=== PATIENT | female | born 1965 | race Caucasian/White ===

== ENCOUNTER 2019-11-22 11:33 | Emergency (ER) | payer OTHER ==
[~2019-11-22] VITALS: Ht 167.6 cm; Wt 150.4 kg
[2019-11-22] MEDS ORDERED: ondansetron/PF 4mg/2ml inj IV ONE (12:25)
[2019-11-22] MEDS ORDERED: etomidate 2mg/ml inj. IV ONE (12:25)
[2019-11-22] MEDS ORDERED: fentaNYL/PF 50MCG/1 ML 2ML syringe IV ONE (12:25)
--- NOTE | 2019-11-22 13:49 | NUR ---
PT HAD CLOSED REDUCTION OF RT SHOULDER, PROCEDURE WAS SUCCESFUL. PT TOLERATED PROCEDURE WELL. PT IS ALERT AND ORIENTED FOLLOWING COMMANDS. VITALS ARE AT BASELINE. PT HAS SIGNIFICANT OTHER PRESENT TO DRIVE PT HOME.
[2019-11-22 14:51] VITALS: BP 130/64
== END 2019-11-22 14:36 | disposition home or self-care (01) ==
LOC: ER 11:34
DX: S42.291A Other displaced fracture of upper end of right humerus, initial encounter for closed fracture (principal); S43.084A Other dislocation of right shoulder joint, initial encounter; W01.0XXA Fall on same level from slipping, tripping and stumbling without subsequent striking against object, initial encounter; Y93.89 Activity, other specified; Y92.89 Other specified places as the place of occurrence of the external cause; Y99.9 Unspecified external cause status
CPT/HCPCS: 23675; 73020; 99152; 99153; 99285; J2405; J3010; 94760

== ENCOUNTER 2019-12-17 09:10 | Inpatient (IN) | payer OTHER ==
[2019-12-16 15:57] LABS: HEMOGLOBIN A1C 6.5 % (4.5-6.2)
[2019-12-16 16:01] LABS: ALBUMIN 3.3 G/DL (3.4-5.0); ALKALINE PHOSPHATASE 54 IU/L (46-116); BLOOD UREA NITROGEN 7 MG/DL (7-18); BUN/CREATININE RATIO 10.4 (6.6-38.0); CALCIUM 8.7 MG/DL (8.5-10.1); CHLORIDE 105 MMOL/L (99-107); CREATININE 0.67 MG/DL (0.40-0.90); PRE OP ALT 19 U/L (30-65); PRE OP ANION GAP 10 (8-16); PRE OP AST 21 U/L (10-37); PRE OP BILIRUB, TOTAL 0.3 MG/DL (0.0-1.0); PRE OP GLUCOSE 98 MG/DL (70-104); PRE OP SODIUM 146 MMOL/L (135-145); TOTAL CARBON DIOXIDE 31.3 MMOL/L (24-32); TOTAL PROTEIN 6.5 G/DL (6.4-8.2); eGFR > 90 ML/MIN
[2019-12-16 16:02] LABS: PRE OP POTASSIUM 2.8 MMOL/L (3.4-5.1)
[2019-12-16 16:17] LABS: BASOPHILS # (AUTO) 0.1 X10'3 (0-0.2); BASOPHILS % (AUTO) 0.8 % (0-1); EOSINOPHILS # (AUTO) 0.1 X10'3 (0-0.9); EOSINOPHILS % (AUTO) 1.2 % (0-6); LYMPHOCYTES # (AUTO) 2.8 X10'3 (1.1-4.8); LYMPHOCYTES % (AUTO) 36.2 % (21-51); MEAN CORPUSCULAR HEMOGLOBIN 29.7 PG (27.0-31.0); MEAN CORPUSCULAR HGB CONC 33.9 g/dL (33.0-36.5); MEAN CORPUSCULAR VOLUME 87.5 FL (78-98); MEAN PLATELET VOLUME 7.2 FL (7.4-10.4); MONOCYTES # (AUTO) 0.5 X10'3 (0-0.9); NEUTROPHILS # (AUTO) 4.3 X10'3 (1.8-7.7); NEUTROPHILS % (AUTO) 54.8 % (42-75); PRE OP HEMATOCRIT 33.5 % (35.0-45.0); PRE OP HEMOGLOBIN 11.4 g/dL (12.0-16.0); PRE OP PLATELET COUNT 305 X10'3 (140-440); RED BLOOD COUNT 3.83 X10'6 (4.20-5.60); RED CELL DISTRIBUTION WIDTH 15.7 % (11.5-14.5)
[~2019-12-17] VITALS: Ht 165.1 cm; Wt 153.0 kg
[2019-12-17] VITALS (18 sets, daily range): BP systolic 114–149; BP diastolic 36–87
[~2019-12-17 09:10] MED LIST: ASPI-1265 PO; ATOR40TA PO; CARV-50 PO; DOCUMENT DATE & TIME OF BETA-BLOCKER PO ONE; GABA-530 PO; HYDR-4353 PO; HYDR50TA3 PO; LISI40TA4 PO; METF-436 PO; NAPR-56 PO; OMEP20TA5 PO; albuterol 2.5 MG/3 ML nebule NEB ONE; ceFAZolin 1,000 MG/D5W 50ML IVPB Premixed bag IV ONE; cefazolin/dext.iso 2gm/50ml 50 ML IV ONE; famotidine 20mg tablet PO ONE; ringers solution, lacted 1,000 ML IV SCH; tranexamic acid inj. 1,400 MG in normal saline 100ml IV soln 100 ML IV ONE; vancomycin inj 1,500 MG in normal saline 300ml IV soln IV ONE
--- NOTE | 2019-12-17 11:00 | NUR ---
DR NUNES NOTIFIED OF K 3.1 Addendum: 12/17/19 at 1129 by Casandra Ace RN Amended: Links added.
[2019-12-17] MEDS ORDERED: ROPIVAcaine 0.5% (5mg/ml) 30ml vial ONE ×2 (13:01→15:14)
[2019-12-17] MEDS ORDERED: ketorolac trometh. 30mg/ml inj. ONE (13:01)
[2019-12-17] MEDS ORDERED: sevoflurane 250ml liquid IH ONE (13:10)
[2019-12-17] MEDS ORDERED: fentaNYL/PF 50MCG/1 ML 2ML syringe ONE ×2 (13:13→14:06)
[2019-12-17] MEDS ORDERED: MIDAZolam 5mg/5ml vial ONE (13:13)
[2019-12-17] MEDS ORDERED: acetaminophen 325mg tablet PO PRN (14:10)
[2019-12-17] MEDS ORDERED: bisacodyl 10mg suppository rectal RC PRN (14:10)
[2019-12-17] MEDS ORDERED: magnesium hydroxide 30ml (MOM) UD suspension PO PRN (14:10)
[2019-12-17] MEDS ORDERED: diphenhydrAMINE 25mg capsule PO PRN ×2 (14:10)
[2019-12-17] MEDS ORDERED: HYDROmorphone 1 mg/ml syringe IV PRN (14:10)
[2019-12-17] MEDS ORDERED: HYDROmorphone inj. 0.5 MG/0.5 ML DISP.SYRIN IV PRN (14:10)
[2019-12-17] MEDS ORDERED: ondansetron/PF 4mg/2ml inj IV PRN ×2 (14:10→14:50)
[2019-12-17] MEDS ORDERED: ringers solution, lacted 1,000 ML IV SCH (14:48)
[2019-12-17] MEDS ORDERED: ROPIVAcaine 0.2%/PF PUMP/bolus 550 ML INTERSCALE SCH (14:48)
[2019-12-17] MEDS ORDERED: morphine 2 MG/ML inj. syringe IV PRN (14:50)
[2019-12-17] MEDS ORDERED: morphine 4 MG/ML inj SYRINge IV PRN (14:50)
[2019-12-17] MEDS ORDERED: meperidine/PF 25mg/ml syringe IV PRN ×3 (14:50)
[2019-12-17] MEDS ORDERED: ROPIVAcaine 0.2% (10 MG/5 ML) BOLUS INJECTION INTERSCALE PRN (14:50)
[2019-12-17] MEDS ORDERED: proCHLORperazine 10 MG/2 ml inj IV PRN (14:50)
[2019-12-17] MEDS ORDERED: rocuronium 10mg/ml inj IV ONE (15:14)
[2019-12-17] MEDS ORDERED: propofol inj 20 ML IV ONE (15:14)
[2019-12-17] MEDS ORDERED: glycopyrrolate 0.2mg/ml inj ONE (15:14)
[2019-12-17] MEDS ORDERED: LIDOcaine 2% (20mg/ml) 5ml vial ONE (15:14)
[2019-12-17] MEDS ORDERED: neostigmine methylsulfate 1 MG/ML 10ml vial ONE (15:14)
[2019-12-17] MEDS ORDERED: ondansetron/PF 4mg/2ml inj ONE (15:14)
--- NOTE | 2019-12-17 15:52 | NUR ---
Received from OR via ortho bed, accompanied by Anesthesiologist Sheri and report given by Anesthesiolgist. Pt alert and responsive, complaining of back pain, respositioned. VS WNL, mask to 10L, sats 95% but MD requestig breathing treatment and continuous pulse ox when upstairs on the floor. 20G to left hand LR IVF 100cc/hr and TXA still running from OR. Right shoulder with wrap and cold pack and island dressing present, ON-Q catheter line present. Pt states she has no pain to shoulder. Able to move fingers and states she can feel touch.
[2019-12-17] MEDS ORDERED: ipratropium/albuterol 3ml nebule NEB ONE (16:05)
--- NOTE | 2019-12-17 16:05 | NUR ---
Blood sugar checked per MD request, 104.
--- NOTE | 2019-12-17 16:45 | NUR ---
Patient in room PAS IN 900. I have received report from Tamiko MACE in recovery and had the opportunity to ask questions and assume patient care.
--- NOTE | 2019-12-17 17:02 | NUR ---
Report called to receiving nurse. Transferred via ortho bed to room 4024B. Belongings sent with patient, at bedside. Special Issues communicated to receiving nurse NAKITA Moe who was at bedside. Patient completely reposiitioned with multiple pillows per her request, ice chips in hand tolerating well. BLL call light within reach, O2 NC to 3L, chart given to front office assistant. Pt continues to state no pain in shoulder some remains in back.
[2019-12-17] MEDS ORDERED: tranexamic acid inj. 1,500 MG in normal saline 100ml IV soln 100 ML IV ONE (17:23)
[2019-12-17] MEDS: gabapentin 100mg capsule PO SCH ×2 (17:36→23:59)
--- NOTE | 2019-12-17 18:00 | NUR ---
Patient in room ORTHO 4024. I have received report from NAKITA Moe and had the opportunity to ask questions and assume patient care.
[2019-12-17] MEDS: potassium cl 20mEq in 1/2 NS 1,000 ML IV SCH ×2 (18:46→23:15)
[2019-12-17] MEDS: ceFAZolin 1GM/D5W- ADD-VANTAGE 50 ML IV SCH (18:46)
[2019-12-17] MEDS ORDERED: vancomycin/NS 1 GM ADD-VANTAGE 250 ML IV SCH (20:00)
[2019-12-17] MEDS: acetaminophen 325mg tablet PO SCH (20:23)
[2019-12-17] MEDS: metFORMIN 500mg tablet PO SCH (20:23)
[2019-12-17] MEDS: naproxen 500mg tablet PO SCH (20:23)
[2019-12-17] MEDS: carVEDilol 3.125mg tablet PO SCH (20:24)
[2019-12-17] MEDS: oxyCODONE IR 5mg (immed. release) tablet PO PRN (20:26)
[2019-12-17] MEDS: sennosides 8.6mg tablet PO SCH (20:34)
[2019-12-18] MEDS: ceFAZolin 1GM/D5W- ADD-VANTAGE 50 ML IV SCH
[2019-12-18] MEDS: oxyCODONE IR 5mg (immed. release) tablet PO PRN ×5 (00:27→21:35)
[2019-12-18 02:00] VITALS: BP 103/56
[2019-12-18] MEDS: acetaminophen 325mg tablet PO SCH ×4 (02:00→19:56)
[2019-12-18 06:00] VITALS: BP 127/56
[2019-12-18] MEDS: potassium cl 20mEq in 1/2 NS 1,000 ML IV SCH (06:08)
--- NOTE | 2019-12-18 06:43 | NUR ---
Problems reprioritized. Patient report given, questions answered & plan of care reviewed with NAKITA Trevino.
[2019-12-18 06:47] LABS: BASOPHILS # (AUTO) 0.1 X10'3 (0-0.2); BASOPHILS % (AUTO) 0.6 % (0-1); EOSINOPHILS # (AUTO) 0.1 X10'3 (0-0.9); EOSINOPHILS % (AUTO) 0.6 % (0-6); HEMATOCRIT 28.4 % (35.0-45.0); HEMOGLOBIN 9.8 g/dl (12.0-16.0); LYMPHOCYTES # (AUTO) 1.8 X10'3 (1.1-4.8); LYMPHOCYTES % (AUTO) 18.9 % (21-51); MEAN CORPUSCULAR HEMOGLOBIN 30.8 PG (27.0-31.0); MEAN CORPUSCULAR HGB CONC 34.5 g/dL (33.0-36.5); MEAN CORPUSCULAR VOLUME 89.2 FL (78-98); MEAN PLATELET VOLUME 7.1 FL (7.4-10.4); MONOCYTES # (AUTO) 0.7 X10'3 (0-0.9); NEUTROPHILS # (AUTO) 6.8 X10'3 (1.8-7.7); NEUTROPHILS % (AUTO) 72.9 % (42-75); PLATELET COUNT 237 X10'3 (140-440); RED BLOOD COUNT 3.19 X10'6 (4.20-5.60); RED CELL DISTRIBUTION WIDTH 15.7 % (11.5-14.5); WHITE BLOOD COUNT 9.4 X10'3 (4.5-11.0)
[2019-12-18 06:57] LABS: ANION GAP 11 (8-16); CHLORIDE 106 MMOL/L (99-107); POTASSIUM 3.3 MMOL/L (3.5-5.1); SODIUM 144 MMOL/L (135-145); TOTAL CARBON DIOXIDE 27.5 MMOL/L (24-32)
[2019-12-18] MEDS ORDERED: aspirin 81mg tab.chew PO SCH (08:00)
[2019-12-18] MEDS: HYDROchlorothiazide 25mg tablet PO SCH ×3 (08:00→11:03)
[2019-12-18] MEDS: aspirin 325mg tablet PO SCH (08:05)
[2019-12-18] MEDS: gabapentin 100mg capsule PO SCH ×3 (08:05→23:54)
[2019-12-18] MEDS: metFORMIN 500mg tablet PO SCH ×2 (08:05→19:56)
[2019-12-18] MEDS: atorvastatin 20mg tablet PO SCH (08:05)
[2019-12-18] MEDS: carVEDilol 3.125mg tablet PO SCH ×2 (08:06→19:56)
[2019-12-18] MEDS: lisinopril 20mg tablet PO SCH (08:07)
[2019-12-18] MEDS: pantoprazole 40mg Tablet.DR PO SCH (08:14)
[2019-12-18] MEDS: naproxen 500mg tablet PO SCH ×2 (08:14→19:56)
[2019-12-18 10:00] VITALS: BP 127/68
[2019-12-18] MEDS ORDERED: potassium Cl 20 mEq SR tablet PO PRN (10:55)
[2019-12-18] MEDS ORDERED: potassium CL 10mEq/100ml bag 100 ML IV PRN (10:55)
[2019-12-18] MEDS: potassium Cl 20 mEq SR tablet PO PRN ×3 (11:03→21:34)
--- NOTE | 2019-12-18 12:15 | NUR ---
DM consult: Pt with A1c 6.5, DM education not warranted at this time. Will continue to follow. Addendum: 12/18/19 at [address] Amended: Links added.
[2019-12-18 14:00] VITALS: BP 144/58
[2019-12-18 18:00] VITALS: BP 149/69
--- NOTE | 2019-12-18 18:30 | NUR ---
Problems reprioritized. Patient report given, questions answered & plan of care reviewed with Loren MACE.
--- NOTE | 2019-12-18 19:15 | NUR ---
Patient in room ORTHO 4024. I have received report from Belinda MACE and had the opportunity to ask questions and assume patient care.
[2019-12-18] MEDS: sennosides 8.6mg tablet PO SCH (21:00)
[2019-12-18 22:00] VITALS: BP 132/68
[2019-12-19] MEDS: acetaminophen 325mg tablet PO SCH ×2 (02:00→08:07)
[2019-12-19] MEDS: oxyCODONE IR 5mg (immed. release) tablet PO PRN ×2 (02:17→09:09)
--- NOTE | 2019-12-19 06:25 | NUR ---
Problems reprioritized. Patient report given, questions answered & plan of care reviewed with NAKITA Fulton.
[2019-12-19 06:46] VITALS: BP 133/46
[2019-12-19 07:59] LABS: BASOPHILS # (AUTO) 0.1 X10'3 (0-0.2); BASOPHILS % (AUTO) 0.7 % (0-1); EOSINOPHILS # (AUTO) 0.1 X10'3 (0-0.9); EOSINOPHILS % (AUTO) 0.7 % (0-6); HEMATOCRIT 28.3 % (35.0-45.0); HEMOGLOBIN 9.7 g/dl (12.0-16.0); LYMPHOCYTES # (AUTO) 1.7 X10'3 (1.1-4.8); LYMPHOCYTES % (AUTO) 20.5 % (21-51); MEAN CORPUSCULAR HEMOGLOBIN 30.3 PG (27.0-31.0); MEAN CORPUSCULAR HGB CONC 34.2 g/dL (33.0-36.5); MEAN CORPUSCULAR VOLUME 88.5 FL (78-98); MONOCYTES # (AUTO) 0.9 X10'3 (0-0.9); MONOCYTES % (AUTO) 10.5 % (2-12); NEUTROPHILS # (AUTO) 5.5 X10'3 (1.8-7.7); NEUTROPHILS % (AUTO) 67.6 % (42-75); PLATELET COUNT 224 X10'3 (140-440); RED CELL DISTRIBUTION WIDTH 15.7 % (11.5-14.5); WHITE BLOOD COUNT 8.1 X10'3 (4.5-11.0)
[2019-12-19] MEDS: metFORMIN 500mg tablet PO SCH (08:06)
[2019-12-19] MEDS: carVEDilol 3.125mg tablet PO SCH (08:06)
[2019-12-19 08:07] VITALS: BP_SYST 133
[2019-12-19] MEDS: aspirin 325mg tablet PO SCH (08:07)
[2019-12-19] MEDS: atorvastatin 20mg tablet PO SCH (08:07)
[2019-12-19] MEDS: pantoprazole 40mg Tablet.DR PO SCH (08:07)
[2019-12-19] MEDS: lisinopril 20mg tablet PO SCH (08:07)
[2019-12-19] MEDS: gabapentin 100mg capsule PO SCH (08:07)
[2019-12-19] MEDS: HYDROchlorothiazide 25mg tablet PO SCH (08:07)
[2019-12-19] MEDS: naproxen 500mg tablet PO SCH (08:07)
[2019-12-19 08:17] LABS: MAGNESIUM 1.6 MG/DL (1.5-2.4); POTASSIUM 3.2 MMOL/L (3.5-5.1)
[2019-12-19] MEDS: potassium Cl 20 mEq SR tablet PO PRN (09:08)
[2019-12-19] MEDS ORDERED: acetaminophen 325mg tablet PO PRN (14:10)
== END 2019-12-19 10:00 | disposition home or self-care (01) | DRG 483 ==
LOC: PAS IN 09:10 → EDSTATUS 11:45 → ORTHO 4S 17:07
PROVIDERS: ADMIT Orthopaedic Surgery; ATTEND Orthopaedic Surgery
PROC: 0LS30ZZ Reposition Right Upper Arm Tendon, Open Approach (ICD-10-PCS; 2019-12-17)
PROC: 3E0T3BZ Introduction of Anesthetic Agent into Peripheral Nerves and Plexi, Percutaneous Approach (ICD-10-PCS; 2019-12-17)
PROC: 0RRJ0J7 Replacement of Right Shoulder Joint with Synthetic Substitute, Glenoid Surface, Open Approach (ICD-10-PCS; principal; 2019-12-17 13:10)
DX: S42.241A 4-part fracture of surgical neck of right humerus, initial encounter for closed fracture (principal); S42.201A Unspecified fracture of upper end of right humerus, initial encounter for closed fracture; X58.XXXA Exposure to other specified factors, initial encounter; Y93.89 Activity, other specified; Y92.89 Other specified places as the place of occurrence of the external cause; Y99.8 Other external cause status
CPT/HCPCS: 36415; 80051; 80053; 82948; 83036; 83735; 84132; 85025; 87081; 94640; 94760; A4565; A4618; A6449; A7000; C1776; G0378; J0690; J1885; J2001; J2175; J2250; J2405; J2704; J2710; J2795; J3010; J3370; J3480; J3490; J7120

== ENCOUNTER 2021-02-04 12:20 | Inpatient (IN) | payer OTHER ==
[~2021-02-04] VITALS: Ht 170.2 cm; Wt 140.3 kg
[~2021-02-04 12:20] MED LIST changes: -DOCUMENT DATE & TIME OF BETA-BLOCKER PO ONE; -HYDR50TA3 PO; +HYDR50TA4 PO; +LISI40TA13 PO; -LISI40TA4 PO; -albuterol 2.5 MG/3 ML nebule NEB ONE; -ceFAZolin 1,000 MG/D5W 50ML IVPB Premixed bag IV ONE; -cefazolin/dext.iso 2gm/50ml 50 ML IV ONE; -famotidine 20mg tablet PO ONE; -ringers solution, lacted 1,000 ML IV SCH; -tranexamic acid inj. 1,400 MG in normal saline 100ml IV soln 100 ML IV ONE; -vancomycin inj 1,500 MG in normal saline 300ml IV soln IV ONE
[2021-02-04 13:10] LABS: BASOPHILS # (AUTO) 0.1 X10'3 (0-0.2); BASOPHILS % (AUTO) 0.5 % (0-1); EOSINOPHILS # (AUTO) 0.1 X10'3 (0-0.9); EOSINOPHILS % (AUTO) 1.5 % (0-6); HEMATOCRIT 34.5 % (35.0-45.0); HEMOGLOBIN 11.2 g/dl (12.0-16.0); LYMPHOCYTES # (AUTO) 2.5 X10'3 (1.1-4.8); LYMPHOCYTES % (AUTO) 25.1 % (21-51); MEAN CORPUSCULAR HEMOGLOBIN 29.4 PG (27.0-31.0); MEAN CORPUSCULAR HGB CONC 32.6 g/dL (33.0-36.5); MEAN CORPUSCULAR VOLUME 90.3 FL (78-98); MEAN PLATELET VOLUME 7.5 FL (7.4-10.4); MONOCYTES # (AUTO) 0.7 X10'3 (0-0.9); MONOCYTES % (AUTO) 7.2 % (2-12); NEUTROPHILS # (AUTO) 6.7 X10'3 (1.8-7.7); NEUTROPHILS % (AUTO) 65.7 % (42-75); PLATELET COUNT 279 X10'3 (140-440); RED BLOOD COUNT 3.82 X10'6 (4.20-5.60); RED CELL DISTRIBUTION WIDTH 16.2 % (11.5-14.5); WHITE BLOOD COUNT 10.1 X10'3 (4.5-11.0)
[2021-02-04 13:11] LABS: ALBUMIN 3.6 G/DL (3.4-5.0); ANION GAP 13 (8-16); BILIRUBIN,TOTAL 0.3 MG/DL (0.1-1.0); BLOOD UREA NITROGEN 20 MG/DL (7-18); BUN/CREATININE RATIO 17.7 (6.6-38.0); CALCIUM 8.3 MG/DL (8.5-10.1); CHLORIDE 101 MMOL/L (99-107); CREATININE 1.13 MG/DL (0.40-0.90); GLUCOSE 97 MG/DL (70-104); POTASSIUM 3.8 MMOL/L (3.5-5.1); SODIUM 142 MMOL/L (135-145); TOTAL CARBON DIOXIDE 28.3 MMOL/L (24-32); TOTAL PROTEIN 6.7 G/DL (6.4-8.2); eGFR 50 ML/MIN
[2021-02-04 13:12] LABS: ALANINE AMINOTRANSFERASE 20 U/L (12-78); ALBUMIN/GLOBULIN RATIO 1.2 (1.1-1.5); ALKALINE PHOSPHATASE 42 IU/L (46-116); ASPARTATE AMINO TRANSFERASE 21 U/L (10-37)
[2021-02-04] MEDS ORDERED: nitroGLYCERIN 0.4mg SUBLingual tab SL PRN ×2 (14:40→17:45)
[2021-02-04] MEDS ORDERED: aspirin 81mg tab.chew PO ONE (14:40)
[2021-02-04] MEDS ORDERED: magnesium 2GM in 50ml NS 50 ML IV PRN (17:45)
[2021-02-04] MEDS ORDERED: diphenhydrAMINE 25mg capsule PO PRN (17:45)
[2021-02-04] MEDS ORDERED: ondansetron/PF 4mg/2ml inj IV PRN (17:45)
[2021-02-04] MEDS ORDERED: acetaminophen 650mg rectal suppository RC PRN (17:45)
[2021-02-04] MEDS ORDERED: magnesium Cl slow-release 64mg tablet PO PRN (17:45)
[2021-02-04] MEDS ORDERED: morphine 2 MG/ML inj. syringe IV PRN ×2 (17:45)
[2021-02-04] MEDS ORDERED: dextrose 50%-water 50ml dispensing syringe IV PRN ×2 (17:45)
[2021-02-04] MEDS ORDERED: potassium Cl 20 mEq SR tablet PO PRN (17:45)
[2021-02-04] MEDS ORDERED: acetaminophen 325mg tablet PO PRN ×2 (17:45)
[2021-02-04] MEDS ORDERED: potassium Cl 40MEQ/1/2NS 520ml 520 ML IV PRN ×2 (17:45)
[2021-02-04] MEDS ORDERED: bisacodyl 10mg suppository rectal RC PRN (17:45)
[2021-02-04] MEDS ORDERED: mag hydrox/Alum hydrox/simeth 30ml oral suspension PO PRN (17:45)
[2021-02-04] MEDS: normal saline 1000ml 1,000 ML IV SCH (17:45)
[2021-02-04] MEDS ORDERED: magnesium 4gm in 100ml NS 100 ML IV PRN (17:45)
[2021-02-04] MEDS ORDERED: magnesium hydroxide 30ml (MOM) UD suspension PO PRN (17:45)
[2021-02-04] MEDS ORDERED: dextrose ORAL solution 15 GM/59 ML bottle PO PRN ×2 (17:45)
[2021-02-04] MEDS ORDERED: insulin Lispro (HumaLOG) vial - multi-dose SQ SCH (17:45)
[2021-02-04] MEDS ORDERED: aminophylline 250mg/10ml inj. IV PRN (17:45)
[2021-02-04] MEDS ORDERED: metoprolol tartrate 1mg/ml inj IV PRN (17:45)
[2021-02-04] MEDS ORDERED: glucagon, human recombinant 1mg kit SUBCUT PRN (17:45)
[2021-02-04] MEDS ORDERED: HYDROcodone/acetaminophen 5mg/325mg tablet PO PRN (17:45)
[2021-02-04] MEDS ORDERED: regadenoson 0.4mg/5ml syringe IV PRN (17:45)
[2021-02-04] MEDS ORDERED: MESSAGE TO PHARMACY PO ONE (17:45)
[2021-02-04 18:54] LABS: HEMOGLOBIN A1C 6.6 % (4.5-6.2)
[2021-02-04 19:30] VITALS: BP 126/75
[2021-02-04] MEDS ORDERED: METF-438 PO (19:42)
[2021-02-04] MEDS: K and/or MAG REPLACEMENT MC SCH (20:00)
[2021-02-04] MEDS ORDERED: insulin glargine (Lantus) pen - multi-dose SQ SCH (21:00)
[2021-02-04] MEDS: heparin, porcine 5000 units/ml vial SQ SCH (21:01)
[2021-02-04] MEDS: HYDROcodone/acetaminophen 10/325mg tab PO PRN (21:02)
[2021-02-04 22:00] VITALS: BP 148/78
[2021-02-05] VITALS (11 sets, daily range): BP systolic 108–138; BP diastolic 46–74
[2021-02-05] MEDS: gabapentin 100mg capsule PO SCH ×2 (00:33→11:38)
--- NOTE | 2021-02-05 01:11 | NUR ---
PT HAD 4 STICKS TO ATTEMPT TO GET LABS. SHE IS CURRENTLY REFUSING ANY MORE STICKS BY NURSING AND WILL WAIT FOR LAB IN AM FOR FURTHER DRAWS. PRIMARY RN AWARE
[2021-02-05 06:48] LABS: BASOPHILS # (AUTO) 0.1 X10'3 (0-0.2); BASOPHILS % (AUTO) 1.1 % (0-1); EOSINOPHILS # (AUTO) 0.1 X10'3 (0-0.9); EOSINOPHILS % (AUTO) 1.5 % (0-6); HEMATOCRIT 31.4 % (35.0-45.0); HEMOGLOBIN 10.5 g/dl (12.0-16.0); LYMPHOCYTES # (AUTO) 2.9 X10'3 (1.1-4.8); LYMPHOCYTES % (AUTO) 38.5 % (21-51); MEAN CORPUSCULAR HEMOGLOBIN 29.9 PG (27.0-31.0); MEAN CORPUSCULAR HGB CONC 33.4 g/dL (33.0-36.5); MEAN CORPUSCULAR VOLUME 89.4 FL (78-98); MEAN PLATELET VOLUME 7.6 FL (7.4-10.4); MONOCYTES # (AUTO) 0.7 X10'3 (0-0.9); MONOCYTES % (AUTO) 8.7 % (2-12); NEUTROPHILS # (AUTO) 3.8 X10'3 (1.8-7.7); NEUTROPHILS % (AUTO) 50.2 % (42-75); PLATELET COUNT 245 X10'3 (140-440); RED BLOOD COUNT 3.51 X10'6 (4.20-5.60); RED CELL DISTRIBUTION WIDTH 15.9 % (11.5-14.5); WHITE BLOOD COUNT 7.6 X10'3 (4.5-11.0)
[2021-02-05] MEDS: normal saline 1000ml 1,000 ML IV SCH (07:05)
[2021-02-05 07:23] LABS: ALANINE AMINOTRANSFERASE 19 U/L (12-78); ALBUMIN 3.2 G/DL (3.4-5.0); ALKALINE PHOSPHATASE 43 IU/L (46-116); ANION GAP 10 (8-16); ASPARTATE AMINO TRANSFERASE 20 U/L (10-37); BILIRUBIN,TOTAL 0.2 MG/DL (0.1-1.0); BLOOD UREA NITROGEN 21 MG/DL (7-18); BUN/CREATININE RATIO 22.6 (6.6-38.0); CALCIUM 8.4 MG/DL (8.5-10.1); CHLORIDE 106 MMOL/L (99-107); CHOL/HDL RATIO 3.2 (0.00-4.99); CHOLESTEROL 135 MG/DL (0-200); CREATININE 0.93 MG/DL (0.40-0.90); GLUCOSE 103 MG/DL (70-104); HDL CHOLESTEROL 42 MG/DL (35-60); LDL CHOLESTEROL 73 MG/DL (50-100); PHOSPHORUS 5.1 MG/DL (2.3-4.5); POTASSIUM 3.2 MMOL/L (3.5-5.1); SODIUM 146 MMOL/L (135-145); TOTAL CARBON DIOXIDE 30.3 MMOL/L (24-32); TOTAL PROTEIN 6.3 G/DL (6.4-8.2); TRIGLYCERIDES 149 MG/DL (20-135); eGFR 62 ML/MIN
[2021-02-05] MEDS ORDERED: pantoprazole 40mg Tablet.DR PO SCH (07:30)
[2021-02-05] MEDS ORDERED: atorvastatin 20mg tablet PO SCH (08:00)
[2021-02-05] MEDS ORDERED: HYDROchlorothiazide 25mg tablet PO SCH (08:00)
[2021-02-05] MEDS ORDERED: carVEDilol 3.125mg tablet PO SCH (08:00)
[2021-02-05] MEDS ORDERED: aspirin 81mg tab.chew PO SCH (08:00)
[2021-02-05] MEDS: K and/or MAG REPLACEMENT MC SCH (08:00)
[2021-02-05] MEDS ORDERED: lisinopril 20mg tablet PO SCH (08:00)
--- NOTE | 2021-02-05 08:30 | NUR ---
MAG AND POTASSIUM REPLACEMENT STARTED. FOR MAG LEVEL AT 1, AND POTASSIUM AT 3.2 Addendum: 02/05/21 at 2010 by Traci Martell RN Amended: Links added.
[2021-02-05] MEDS: heparin, porcine 5000 units/ml vial SQ SCH (08:38)
[2021-02-05] MEDS: potassium Cl 20 mEq SR tablet PO PRN ×3 (08:40→17:21)
--- NOTE | 2021-02-05 08:43 | NUR ---
TRANSFERRED TO [facility],VIA W/C, FOR KIRT STUDY Addendum: 02/05/21 at 0845 by Traci Martell RN Amended: Links added.
[2021-02-05] MEDS ORDERED: iohexol 350MG/ML 100ml bottle IV ONE (09:02)
[2021-02-05] MEDS ORDERED: MESSAGE TO NURSING PO SCH (11:14)
[2021-02-05] MEDS: HYDROcodone/acetaminophen 10/325mg tab PO PRN ×2 (11:42→17:21)
[2021-02-05] MEDS ORDERED: POTA10TA36 PO (15:13)
[2021-02-05] MEDS ORDERED: NITR0.4T51 SL (15:13)
[2021-02-05] MEDS ORDERED: HYDR25TA5 PO (15:13)
[2021-02-05] MEDS ORDERED: MAGN400C PO (15:13)
[2021-02-05] MEDS ORDERED: CALC667T6 PO (15:13)
[2021-02-05] MEDS ORDERED: calcium acetate 667mg (PhosLO) capsule PO SCH (15:15)
--- NOTE | 2021-02-05 18:35 | NUR ---
Patient in room MED 313. I have received report from Lj, and had the opportunity to ask questions and assume patient care.
[2021-02-05 18:43] LABS: MAGNESIUM 2.3 MG/DL (1.5-2.4); POTASSIUM 3.5 MMOL/L (3.5-5.1)
--- NOTE | 2021-02-05 19:20 | NUR ---
Patient K level 3.5. and Mag level 2.2. Alert, oriented x4. Discharge documented explained and handed to patient. IV removed. Instructed to follow with her appointments and doctors instruction. Patient was not under any stress. All questions were answered. patient was wheeled down to the parking lot with her significant other. Informed Justyna, the charge nurse regarding the patient's discharge time.
== END 2021-02-05 19:20 | disposition home or self-care (01) | DRG 392 ==
LOC: ER 12:21 → ED HOLD 17:42 → MED 3N 20:18
PROVIDERS: ADMIT Family Medicine; ATTEND Family Medicine
PROC: 4A02XM4 Measurement of Cardiac Total Activity, External Approach (ICD-10-PCS; principal; 2021-02-05)
PROC: 3E073KZ Introduction of Other Diagnostic Substance into Coronary Artery, Percutaneous Approach (ICD-10-PCS; 2021-02-05)
PROC: B32T1ZZ Computerized Tomography (CT Scan) of Left Pulmonary Artery using Low Osmolar Contrast (ICD-10-PCS; 2021-02-05)
PROC: B3201ZZ Computerized Tomography (CT Scan) of Thoracic Aorta using Low Osmolar Contrast (ICD-10-PCS; 2021-02-05)
PROC: B32S1ZZ Computerized Tomography (CT Scan) of Right Pulmonary Artery using Low Osmolar Contrast (ICD-10-PCS; 2021-02-05)
DX: K21.9 Gastro-esophageal reflux disease without esophagitis (principal); Z68.42 Body mass index [BMI] 45.0-49.9, adult; E11.40 Type 2 diabetes mellitus with diabetic neuropathy, unspecified; E66.01 Morbid (severe) obesity due to excess calories; E78.5 Hyperlipidemia, unspecified; G89.4 Chronic pain syndrome; I10 Essential (primary) hypertension; Z96.611 Presence of right artificial shoulder joint; F17.210 Nicotine dependence, cigarettes, uncomplicated; R91.8 Other nonspecific abnormal finding of lung field; Z79.84 Long term (current) use of oral hypoglycemic drugs; Z79.899 Other long term (current) drug therapy; Z82.49 Family history of ischemic heart disease and other diseases of the circulatory system; Z85.42 Personal history of malignant neoplasm of other parts of uterus; Z90.710 Acquired absence of both cervix and uterus; Z71.6 Tobacco abuse counseling
CPT/HCPCS: 36415; 71045; 71275; 78452; 80053; 80061; 82948; 83036; 83735; 83880; 84100; 84132; 84443; 84484; 85025; 87081; 93005; 93017; 93306; 99285; A9500; G0378; J1644; J1815; J2785; J3475; J7030; Q9967

== ENCOUNTER 2022-08-19 18:01 | Emergency (ER) | payer OTHER ==
[~2022-08-19] VITALS: Ht 170.2 cm; Wt 136.4 kg
[~2022-08-19 18:01] MED LIST changes: +CALC667T6 PO; +HYDR25TA5 PO; -HYDR50TA4 PO; +MAGN400C PO; -METF-436 PO; +METF-438 PO; -NAPR-56 PO; +NITR0.4T51 SL; +OMEP20TA43 PO; -OMEP20TA5 PO; +POTA-206 PO
[2022-08-19 18:38] VITALS: BP 154/97
[2022-08-19] MEDS ORDERED: diazepam 5mg tablet PO ONE ×2 (19:20→20:25)
[2022-08-19] MEDS ORDERED: ORPH100T2 PO (20:33)
[2022-08-19] MEDS ORDERED: ibuprofen 200mg tablet PO ONE (20:35)
== END 2022-08-19 20:46 | disposition home or self-care (01) ==
LOC: ER 18:02
DX: M62.830 Muscle spasm of back (principal); M54.42 Lumbago with sciatica, left side; E78.00 Pure hypercholesterolemia, unspecified; I10 Essential (primary) hypertension; K21.9 Gastro-esophageal reflux disease without esophagitis; E11.9 Type 2 diabetes mellitus without complications; Z79.82 Long term (current) use of aspirin; Z79.899 Other long term (current) drug therapy
CPT/HCPCS: 99284